=== PATIENT | female | born 1965 | race Caucasian/White ===

== ENCOUNTER 2019-12-07 14:56 | Emergency (ER) | payer OTHER ==
[~2019-12-07] VITALS: Ht 167.6 cm; Wt 86.2 kg
[2019-12-07] MEDS ORDERED: Trileptal150 MG PO (15:28)
[2019-12-07] MEDS ORDERED: QUET200 PO (15:28)
[2019-12-07] MEDS ORDERED: Loratadine10 MG PO (15:29)
[2019-12-07] MEDS ORDERED: LEVSOD50 PO (15:29)
[2019-12-07] MEDS ORDERED: Chantix1 MG (15:29)
[2019-12-07] MEDS ORDERED: ZOCOR20 MG PO (15:29)
[2019-12-07] MEDS ORDERED: Seroquel400 MG PO (15:29)
[2019-12-07] MEDS ORDERED: ESTRADIOL0.5 MG PO (15:30)
[2019-12-07] MEDS ORDERED: ALPR1 PO (15:32)
[2019-12-07 15:57] LABS: BASOPHILS ABSOLUTE AUTO 0.07 K/mm3 (0.00-0.23); BASOPHILS PERCENT AUTO 1 % (0-2); EOSINOPHILS ABSOLUTE AUTO 0.19 K/mm3 (0.00-0.68); EOSINOPHILS PERCENT AUTO 3 % (0-6); Hematocrit 40.4 % (33.0-51.0); Hemoglobin 13.8 g/dL (11.5-16.0); IMMATURE GRAN ABSOLUTE AUTO 0.01 K/mm3 (0.00-0.10); IMMATURE GRAN PERCENT AUTO 0 % (0-1); LYMPHOCYTES ABSOLUTE AUTO 1.89 K/mm3 (0.84-5.20); LYMPHOCYTES PERCENT AUTO 34 % (21-46); MONOCYTES ABSOLUTE AUTO 0.38 K/mm3 (0.16-1.47); MONOCYTES PERCENT AUTO 7 % (4-13); Mean Corpuscular HGB 30.8 pg (26.0-34.0); Mean Corpuscular HGB Conc 34.2 g/dL (31.5-36.5); Mean Corpuscular Volume 90 fL (80-100); NEUTROPHILS ABSOLUTE AUTO 3.06 K/mm3 (1.96-9.15); NEUTROPHILS PERCENT AUTO 55 % (41-73); Platelet Count 186 K/mm3 (150-400); RDW Coefficient Variation 13.1 % (11.7-14.2); RDW Standard Deviation 43.8 fL (35.1-46.3); Red Blood Cell Count 4.48 M/mm3 (3.80-5.20)
[2019-12-07 16:36] LABS: Alanine Aminotransfer (ALT/SGP 40 U/L (12-78); Albumin, Blood 3.9 g/dL (3.4-5.0); Albumin/Globulin Ratio 1.1 (0.8-1.8); Alk Phos 113 U/L (50-136); Anion Gap 6 mmol/L (6-16); Aspartate Aminotrans (AST/SGOT 35 U/L (12-37); Bilirubin, Total 0.4 mg/dL (0.1-1.0); Blood Urea Nitrogen 9 mg/dL (8-24); Bun/Creatinine Ratio 15.3 (12.0-20.0); CO2, Blood 25 mmol/L (21-32); Calcium, Blood 9.2 mg/dL (8.5-10.1); Chloride, Blood 102 mmol/L (98-108); Creatinine, Blood 0.59 mg/dL (0.40-1.00); Globulin, Blood 3.7 g/dL (2.2-4.0); Glomerular Filtration Rate >60 (60-); Glucose, Blood 104 mg/dL (70-99); Sodium, Blood 133 mmol/L (136-145); Total Protein, Blood 7.6 g/dL (6.4-8.2)
== END 2019-12-07 17:27 | disposition home or self-care (01) ==
LOC: ER 14:56
PROVIDERS: Emergency Medicine
DX: R60.0 Localized edema (principal); I50.9 Heart failure, unspecified; J44.9 Chronic obstructive pulmonary disease, unspecified; Z87.01 Personal history of pneumonia (recurrent); Z91.048 Other nonmedicinal substance allergy status; Z79.899 Other long term (current) drug therapy; F17.210 Nicotine dependence, cigarettes, uncomplicated
CPT/HCPCS: 71045; 80053; 85025; 93005; 93010; 93971; 99284-25

== ENCOUNTER 2020-05-31 08:30 | Emergency (ER) | payer OTHER ==
[~2020-05-31] VITALS: Ht 162.6 cm; Wt 97.5 kg
[~2020-05-31 08:30] MED LIST: ALPR1 PO; CHANTIX1 MG PO; CLOP75 PO; Cartia Xt120 MG PO; Chantix1 MG; ESTRADIOL0.5 MG PO; EUTHYROX125 MCG PO; GUAI600T33 PO; Gabapentin600 MG PO; HYDROCODONE-AC1 EAC5 PO; LEVSOD50 PO; Loratadine10 MG PO; MERIBIN5 M1 PO; PANT40 PO; Prednisone PO; QUET200 PO; Seroquel400 MG PO; Trileptal150 MG PO; Vitamin D2000 UNIT PO; ZOCOR20 MG PO; ZYRTEC10 M2 PO
[2020-05-31 09:15] LABS: BASOPHILS ABSOLUTE AUTO 0.07 K/mm3 (0.00-0.23); BASOPHILS PERCENT AUTO 1 % (0-2); EOSINOPHILS ABSOLUTE AUTO 0.11 K/mm3 (0.00-0.68); EOSINOPHILS PERCENT AUTO 1 % (0-6); Hematocrit 40.2 % (33.0-51.0); Hemoglobin 13.7 g/dL (11.5-16.0); IMMATURE GRAN PERCENT AUTO 1 % (0-1); LYMPHOCYTES PERCENT AUTO 38 % (21-46); MONOCYTES ABSOLUTE AUTO 0.67 K/mm3 (0.16-1.47); MONOCYTES PERCENT AUTO 6 % (4-13); Mean Corpuscular HGB 31.2 pg (26.0-34.0); Mean Corpuscular HGB Conc 34.1 g/dL (31.5-36.5); Mean Corpuscular Volume 92 fL (80-100); Mean Platelet Volume 9.9 fL (9.1-12.4); NEUTROPHILS ABSOLUTE AUTO 6.44 K/mm3 (1.96-9.15); NEUTROPHILS PERCENT AUTO 54 % (41-73); Platelet Count 208 K/mm3 (150-400); RDW Coefficient Variation 12.7 % (11.7-14.2); RDW Standard Deviation 42.5 fL (35.1-46.3); Red Blood Cell Count 4.39 M/mm3 (3.80-5.20); White Blood Cell Count 11.99 K/mm3 (4.00-11.30)
[2020-05-31 09:17] LABS: Base Excess Venous 6.1 mmol/L; Bicarbonate Venous 29.9 mmol/L (24.0-30.0); PCO2 Venous 34.8 mmHg (38-42)
[2020-05-31 09:18] LABS: pH Blood Venous 7.53 (7.34-7.37)
[2020-05-31 09:38] LABS: Alanine Aminotransfer (ALT/SGP 29 U/L (12-78); Albumin, Blood 3.5 g/dL (3.4-5.0); Albumin/Globulin Ratio 0.9 (0.8-1.8); Alk Phos 122 U/L (50-136); Anion Gap 6 mmol/L (6-16); Aspartate Aminotrans (AST/SGOT 10 U/L (12-37); Bilirubin, Total 0.3 mg/dL (0.1-1.0); Blood Urea Nitrogen 22 mg/dL (8-24); Bun/Creatinine Ratio 29.6 (12.0-20.0); CO2, Blood 28 mmol/L (21-32); Calcium, Blood 9.3 mg/dL (8.5-10.1); Chloride, Blood 101 mmol/L (98-108); Creatinine, Blood 0.74 mg/dL (0.40-1.00); Globulin, Blood 3.8 g/dL (2.2-4.0); Glomerular Filtration Rate >60 (60-); Glucose, Blood 119 mg/dL (70-99); Potassium, Blood 3.7 mmol/L (3.5-5.5); Sodium, Blood 135 mmol/L (136-145); Total Protein, Blood 7.3 g/dL (6.4-8.2); Troponin I <0.015 ng/mL (0.000-0.040)
[2020-05-31 09:47] LABS: International Normalized Ratio 0.95; Prothrombin Time Results 10.2 Sec (9.7-11.5)
[2020-05-31] MEDS ORDERED: Sucralfate1 GM PO (09:51)
[2020-05-31 10:09] LABS: Source, Urine Voided
[2020-05-31] MEDS ORDERED: ATOR80 PO (10:13)
[2020-05-31] MEDS ORDERED: POTA10T PO (10:14)
[2020-05-31] MEDS ORDERED: LASIX40 MG (10:14)
[2020-05-31] MEDS ORDERED: TORS10 (10:14)
[2020-05-31 10:21] LABS: Bilirubin, Urine Neg (Neg); Blood, Urine 1+ (Neg); Glucose Qualitative, Urine Neg (Neg); Ketones, Urine 1+ (Neg); Leukocyte Esterase, Urine 1+ (Neg); Nitrite, Urine Neg (Neg); Protein, Urine 2+ (Neg); Specific Gravity, Urine 1.015 (1.003-1.022); Urobilinogen, Urine 1+ (Normal)
[2020-05-31 10:40] LABS: Appearance, Urine Clear (Clear); Bacteria Rare /hpf; Color, Urine Amber (P-Yellow); Red Blood Cells, Urine 0-2 /hpf (0-2); Squamous Epithelial Cells Rare /hpf (Few)
[2020-05-31 10:41] LABS: Amorphous Light (0-Heavy); Mucus Light (0-Heavy)
== END 2020-05-31 10:29 | disposition home or self-care (01) ==
LOC: ER 08:30
PROVIDERS: Emergency Medicine
DX: R07.9 Chest pain, unspecified (principal); R06.4 Hyperventilation; J44.9 Chronic obstructive pulmonary disease, unspecified; E78.00 Pure hypercholesterolemia, unspecified; F17.210 Nicotine dependence, cigarettes, uncomplicated; Z91.09 Other allergy status, other than to drugs and biological substances; Z88.8 Allergy status to other drugs, medicaments and biological substances; Z79.02 Long term (current) use of antithrombotics/antiplatelets; Z79.899 Other long term (current) drug therapy
CPT/HCPCS: 36415; 71045; 80053; 81001; 82803; 83690; 83880; 84484; 85025; 85610; 93005; 93010; 96361; 96374; 96375; 99285-25; C9113; J2405; J7030

== ENCOUNTER 2021-01-02 10:09 | Day surgery (SDC) | payer OTHER ==
[~2021-01-02] VITALS: Ht 162.6 cm; Wt 103.9 kg
[~2021-01-02 10:09] MED LIST changes: +ATOR80 PO; +LASIX40 MG; +POTA10T PO; +Sucralfate1 GM PO; +TORS10
== END 2021-01-02 12:33 | disposition home or self-care (01) ==
LOC: ORSCSDS 10:09
PROVIDERS: Internal Medicine Gastroenterology
PROC: 0DBK8ZX Excision of Ascending Colon, Via Natural or Artificial Opening Endoscopic, Diagnostic (ICD-10-PCS; principal; 2021-01-02 11:30)
DX: Z12.11 Encounter for screening for malignant neoplasm of colon (principal); D12.2 Benign neoplasm of ascending colon; K57.30 Diverticulosis of large intestine without perforation or abscess without bleeding; K64.4 Residual hemorrhoidal skin tags; K64.8 Other hemorrhoids; J45.909 Unspecified asthma, uncomplicated; F41.9 Anxiety disorder, unspecified; F31.9 Bipolar disorder, unspecified; F43.10 Post-traumatic stress disorder, unspecified; E03.9 Hypothyroidism, unspecified; E11.9 Type 2 diabetes mellitus without complications; E66.01 Morbid (severe) obesity due to excess calories; Z68.39 Body mass index [BMI] 39.0-39.9, adult; Z79.84 Long term (current) use of oral hypoglycemic drugs; Z79.899 Other long term (current) drug therapy; F17.210 Nicotine dependence, cigarettes, uncomplicated
CPT/HCPCS: 82947; 88305; J2704; J7120

== ENCOUNTER 2021-03-29 09:46 | Day surgery (SDC) | payer OTHER ==
[~2021-03-29] VITALS: Ht 162.6 cm; Wt 100.8 kg
--- NOTE | 2021-03-29 11:40 | NUR ---
03/29/21 1140 Kenzie Van LATE ENTRY IV FELL OUT DURING PROCEDURE. NEW IV STARTED IN , 20G.
== END 2021-03-29 11:25 | disposition home or self-care (01) ==
LOC: ORSCSDS 09:46
PROVIDERS: Internal Medicine Gastroenterology
PROC: 0DBN8ZX Excision of Sigmoid Colon, Via Natural or Artificial Opening Endoscopic, Diagnostic (ICD-10-PCS; principal; 2021-03-29 11:00)
DX: K63.5 Polyp of colon (principal); K64.8 Other hemorrhoids; Z86.010 Personal history of colon polyps; J45.909 Unspecified asthma, uncomplicated; F31.9 Bipolar disorder, unspecified; F41.9 Anxiety disorder, unspecified; I25.10 Atherosclerotic heart disease of native coronary artery without angina pectoris; E11.9 Type 2 diabetes mellitus without complications; E66.01 Morbid (severe) obesity due to excess calories; Z68.38 Body mass index [BMI] 38.0-38.9, adult; Z79.01 Long term (current) use of anticoagulants; Z79.84 Long term (current) use of oral hypoglycemic drugs; Z79.899 Other long term (current) drug therapy; F17.210 Nicotine dependence, cigarettes, uncomplicated
CPT/HCPCS: 82947; 88305; J2704; J7120

== ENCOUNTER 2021-05-13 12:01 | Emergency (ER) | payer OTHER ==
[~2021-05-13] VITALS: Ht 162.6 cm; Wt 90.7 kg
[2021-05-13] MEDS ORDERED: PRED20 PO (13:45)
[2021-05-13] MEDS ORDERED: Zithromax250 MG PO (14:10)
[2021-05-13] MEDS ORDERED: AMOCLA875 PO (14:10)
== END 2021-05-13 14:33 | disposition home or self-care (01) ==
LOC: ER 12:01
DX: J45.901 Unspecified asthma with (acute) exacerbation (principal); J44.9 Chronic obstructive pulmonary disease, unspecified; Z88.8 Allergy status to other drugs, medicaments and biological substances; Z91.048 Other nonmedicinal substance allergy status; Z79.899 Other long term (current) drug therapy; Z99.81 Dependence on supplemental oxygen; Z87.891 Personal history of nicotine dependence
CPT/HCPCS: 71045; 93005; 93010; 94640; 96374; 99284-25; J2930

== ENCOUNTER 2021-07-18 11:28 | Observation (INO) | payer OTHER ==
[~2021-07-18] VITALS: Ht 162.6 cm; Wt 104.5 kg
[~2021-07-18 11:28] MED LIST changes: +AMOCLA875 PO; -Cartia Xt120 MG PO; +DILT120 PO; +PRED20 PO; -Seroquel400 MG PO; +Zithromax250 MG PO
[2021-07-18 12:06] LABS: BASOPHILS ABSOLUTE AUTO 0.05 K/mm3 (0.00-0.23); BASOPHILS PERCENT AUTO 1 % (0-2); EOSINOPHILS ABSOLUTE AUTO 0.18 K/mm3 (0.00-0.68); EOSINOPHILS PERCENT AUTO 3 % (0-6); Hematocrit 40.4 % (33.0-51.0); IMMATURE GRAN ABSOLUTE AUTO 0.02 K/mm3 (0.00-0.10); IMMATURE GRAN PERCENT AUTO 0 % (0-1); LYMPHOCYTES ABSOLUTE AUTO 2.46 K/mm3 (0.84-5.20); LYMPHOCYTES PERCENT AUTO 37 % (21-46); MONOCYTES ABSOLUTE AUTO 0.45 K/mm3 (0.16-1.47); MONOCYTES PERCENT AUTO 7 % (4-13); Mean Corpuscular HGB Conc 34.7 g/dL (31.5-36.5); Mean Corpuscular Volume 92 fL (80-100); Mean Platelet Volume 10.2 fL (9.1-12.4); NEUTROPHILS ABSOLUTE AUTO 3.56 K/mm3 (1.96-9.15); NEUTROPHILS PERCENT AUTO 53 % (41-73); Platelet Count 223 K/mm3 (150-400); RDW Coefficient Variation 12.7 % (11.7-14.2); RDW Standard Deviation 43.6 fL (35.1-46.3); Red Blood Cell Count 4.38 M/mm3 (3.80-5.20); White Blood Cell Count 6.72 K/mm3 (4.00-11.30)
[2021-07-18 12:28] LABS: Troponin I <0.015 ng/mL (0.000-0.040)
[2021-07-18 12:29] LABS: Alanine Aminotransfer (ALT/SGP 36 U/L (12-78); Albumin, Blood 4.2 g/dL (3.4-5.0); Albumin/Globulin Ratio 1.1 (0.8-1.8); Alk Phos 121 U/L (50-136); Anion Gap 9 mmol/L (6-16); Aspartate Aminotrans (AST/SGOT 23 U/L (12-37); Bilirubin, Total 0.3 mg/dL (0.1-1.0); Blood Urea Nitrogen 17 mg/dL (8-24); Bun/Creatinine Ratio 16.5 (12.0-20.0); CO2, Blood 27 mmol/L (21-32); Calcium, Blood 9.5 mg/dL (8.5-10.1); Chloride, Blood 96 mmol/L (98-108); Creatinine, Blood 1.03 mg/dL (0.40-1.00); Globulin, Blood 3.7 g/dL (2.2-4.0); Glomerular Filtration Rate 56 (60-); Glucose, Blood 150 mg/dL (70-99); Potassium, Blood 3.6 mmol/L (3.5-5.5); Sodium, Blood 132 mmol/L (136-145); Total Protein, Blood 7.9 g/dL (6.4-8.2)
--- NOTE | 2021-07-18 16:14 | NUR ---
Echocardiogram completed.
[2021-07-18] MEDS ORDERED: MONT10T PO (18:45)
[2021-07-18] MEDS ORDERED: BUSPIRONE HCL7.5 M1 PO (18:46)
[2021-07-18] MEDS ORDERED: MELO7.5 PO (18:46)
[2021-07-18] MEDS ORDERED: METF500 PO (18:47)
[2021-07-19 00:26] LABS: Hematocrit 35.1 % (33.0-51.0); Hemoglobin 12.6 g/dL (11.5-16.0); Mean Corpuscular HGB 32.5 pg (26.0-34.0); Mean Corpuscular HGB Conc 35.9 g/dL (31.5-36.5); Mean Corpuscular Volume 91 fL (80-100); Mean Platelet Volume 9.6 fL (9.1-12.4); Platelet Count 192 K/mm3 (150-400); RDW Coefficient Variation 12.7 % (11.7-14.2); RDW Standard Deviation 42.3 fL (35.1-46.3); Red Blood Cell Count 3.88 M/mm3 (3.80-5.20); White Blood Cell Count 5.48 K/mm3 (4.00-11.30)
[2021-07-19 00:42] LABS: Anion Gap 7 mmol/L (6-16); Blood Urea Nitrogen 18 mg/dL (8-24); CO2, Blood 28 mmol/L (21-32); Calcium, Blood 8.9 mg/dL (8.5-10.1); Chloride, Blood 99 mmol/L (98-108); Glomerular Filtration Rate >60 (60-); Glucose, Blood 130 mg/dL (70-99); Potassium, Blood 3.8 mmol/L (3.5-5.5); Sodium, Blood 134 mmol/L (136-145)
--- NOTE | 2021-07-19 04:29 | NUR ---
SHIFT SUMMARY PATIENT HAD NO ACUTE CHANGES OBSERVED. AXOX 4 AND INDEPENDENT IN ROOM. DENIES CHEST PAIN, SOB, AND N/V. TROPONINS WNL. PIV REMAINS INTACT. NS INFUSING AT 75mL/HR. CBG 123. ON ROOM AIR DAY AND USES 3L O2 NC NOC. VSS/AFEBRILE. CALL LIGHT IN REACH. BED IN LOWEST POSITION. WILL CONTINUE TO MONITOR UNTIL DAY SHIFT NURSE ASSUMES CARE.
[2021-07-19] MEDS ORDERED: Isosorbide Mono30 MG PO (12:07)
[2021-07-19] MEDS ORDERED: RANO500T PO (12:08)
--- NOTE | 2021-07-19 15:25 | NUR ---
DISCHARGE PT DISCHARGED HOME, IV AND TELE REMOVED PRIOR TO DISCHARGE. TRANSFERED VIA WHEELCHAIR WITH PERSONAL BELONGINGS TO [facility] WHERE SHE WAS PICKED UP BY HER SISTER. PT DISCHARGE EDUCATION GIVEN TO PT AND REVIEWED WITH PT PRIOR TO DISCHARGE, ON NEW MEDICATIONS AND ADMITTING DIAGONSIS. APPOINTMENTS MADE WITHIN REQUESTED TIME FRAME FOR FOLLOW UP WITH PCP AND CARDIAC.
== END 2021-07-19 12:52 | disposition home or self-care (01) ==
LOC: ER 11:28 → ERHOLD 11:29 → MEDS 18:22
PROVIDERS: Nurse Practitioner Acute Care; Physician Assistant; ADMIT Hospitalist
DX: R07.89 Other chest pain (principal); J44.9 Chronic obstructive pulmonary disease, unspecified; I10 Essential (primary) hypertension; E11.9 Type 2 diabetes mellitus without complications; E78.00 Pure hypercholesterolemia, unspecified; E03.9 Hypothyroidism, unspecified; K21.9 Gastro-esophageal reflux disease without esophagitis; F31.9 Bipolar disorder, unspecified; I27.20 Pulmonary hypertension, unspecified; Z88.8 Allergy status to other drugs, medicaments and biological substances; Z91.048 Other nonmedicinal substance allergy status; Z87.891 Personal history of nicotine dependence; Z99.81 Dependence on supplemental oxygen
CPT/HCPCS: 36415; 71046; 80048; 80053; 82947; 83036; 84484; 85025; 85027; 93005; 93010; 93306; 94640; 94760; 99285-25; A9270; J1650; J7030

== ENCOUNTER → 2022-11-27 | Outpatient (CLI) | payer OTHER ==
[~2022-11-27] MED LIST changes: +BUSPIRONE HCL7.5 M1 PO; +Isosorbide Mono30 MG PO; +MELO7.5 PO; +METF500 PO; +MONT10T PO; +RANO500T PO
[2022-11-27 16:57] LABS: Source, Urine Clean Catch
[2022-11-27 17:41] LABS: Appearance, Urine Clear (Clear); Bilirubin, Urine Neg (Neg); Blood, Urine Neg (Neg); Color, Urine Yellow (P-Yellow); Glucose Qualitative, Urine Neg (Neg); Ketones, Urine Neg (Neg); Leukocyte Esterase, Urine Neg (Neg); Nitrite, Urine Neg (Neg); Protein, Urine Neg (Neg); Specific Gravity, Urine 1.005 (1.003-1.022); Urobilinogen, Urine NORM (Normal)
== END | disposition home or self-care (01) ==
LOC: LAB SHORT 12:45 → LAB 12:45
PROVIDERS: Nurse Practitioner Family
DX: R39.89 Other symptoms and signs involving the genitourinary system (principal)
CPT/HCPCS: 81003

== ENCOUNTER 2023-02-08 11:51 | Emergency (ER) | payer MEDICARE, OTHER ==
[~2023-02-08] VITALS: Ht 165.1 cm; Wt 90.7 kg
[2023-02-08 12:53] LABS: BASOPHILS ABSOLUTE AUTO 0.05 K/mm3 (0.00-0.23); BASOPHILS PERCENT AUTO 1 % (0-2); EOSINOPHILS PERCENT AUTO 2 % (0-6); Hematocrit 33.7 % (33.0-51.0); Hemoglobin 11.8 g/dL (11.5-16.0); IMMATURE GRAN ABSOLUTE AUTO 0.02 K/mm3 (0.00-0.10); IMMATURE GRAN PERCENT AUTO 0 % (0-1); LYMPHOCYTES ABSOLUTE AUTO 1.88 K/mm3 (0.84-5.20); LYMPHOCYTES PERCENT AUTO 31 % (21-46); MONOCYTES ABSOLUTE AUTO 0.42 K/mm3 (0.16-1.47); MONOCYTES PERCENT AUTO 7 % (4-13); Mean Corpuscular HGB 31.8 pg (26.0-34.0); Mean Corpuscular Volume 91 fL (80-100); NEUTROPHILS ABSOLUTE AUTO 3.53 K/mm3 (1.96-9.15); NEUTROPHILS PERCENT AUTO 59 % (41-73); RDW Coefficient Variation 13.6 % (11.7-14.2); RDW Standard Deviation 45.2 fL (35.1-46.3); Red Blood Cell Count 3.71 M/mm3 (3.80-5.20)
[2023-02-08 13:02] LABS: Mean Platelet Volume 10.5 fL (9.1-12.4)
[2023-02-08 13:06] LABS: Albumin, Blood 3.9 g/dL (3.4-5.0); Albumin/Globulin Ratio 1.1 (0.8-1.8); Bilirubin, Total 0.3 mg/dL (0.1-1.0); Bun/Creatinine Ratio 13.5 (12.0-20.0); Calcium, Blood 8.7 mg/dL (8.5-10.1); Creatinine, Blood 1.85 mg/dL (0.40-1.00); Globulin, Blood 3.4 g/dL (2.2-4.0); Potassium, Blood 4.4 mmol/L (3.5-5.5); Total Protein, Blood 7.3 g/dL (6.4-8.2)
[2023-02-08 14:08] LABS: Platelet Count 173 K/mm3 (150-400)
[2023-02-08] MEDS ORDERED: MECL25 PO (14:23)
[2023-02-08 14:45] VITALS: BP 138/78
== END 2023-02-08 14:48 | disposition home or self-care (01) ==
LOC: ER 11:51
PROVIDERS: Emergency Medicine
DX: N28.9 Disorder of kidney and ureter, unspecified (principal); I95.9 Hypotension, unspecified; E86.0 Dehydration; J44.9 Chronic obstructive pulmonary disease, unspecified; Z88.4 Allergy status to anesthetic agent; Z91.048 Other nonmedicinal substance allergy status; Z79.899 Other long term (current) drug therapy; Z87.891 Personal history of nicotine dependence
CPT/HCPCS: 80053; 84484; 85025; 93005; 93010; 99284-25; A9270; J7030

== ENCOUNTER 2023-09-30 20:00 | Observation (INO) | payer MEDICARE, OTHER ==
[~2023-09-30] VITALS: Ht 162.6 cm; Wt 99.0 kg
[~2023-09-30 20:00] MED LIST changes: +MECL25 PO
[2023-09-30 21:01] LABS: BASOPHILS ABSOLUTE AUTO 0.07 K/mm3 (0.00-0.23); BASOPHILS PERCENT AUTO 1 % (0-2); EOSINOPHILS ABSOLUTE AUTO 0.16 K/mm3 (0.00-0.68); EOSINOPHILS PERCENT AUTO 2 % (0-6); Hematocrit 39.1 % (33.0-51.0); Hemoglobin 13.7 g/dL (11.5-16.0); IMMATURE GRAN ABSOLUTE AUTO 0.02 K/mm3 (0.00-0.10); IMMATURE GRAN PERCENT AUTO 0 % (0-1); LYMPHOCYTES ABSOLUTE AUTO 2.42 K/mm3 (0.84-5.20); LYMPHOCYTES PERCENT AUTO 29 % (21-46); MONOCYTES ABSOLUTE AUTO 0.54 K/mm3 (0.16-1.47); MONOCYTES PERCENT AUTO 6 % (4-13); Mean Corpuscular HGB 32.1 pg (26.0-34.0); Mean Corpuscular Volume 92 fL (80-100); NEUTROPHILS ABSOLUTE AUTO 5.23 K/mm3 (1.96-9.15); NEUTROPHILS PERCENT AUTO 62 % (41-73); Platelet Count 220 K/mm3 (150-400); RDW Coefficient Variation 13.1 % (11.7-14.2); RDW Standard Deviation 43.6 fL (35.1-46.3); Red Blood Cell Count 4.27 M/mm3 (3.80-5.20); White Blood Cell Count 8.44 K/mm3 (4.00-11.30)
[2023-09-30 21:18] LABS: Albumin, Blood 4.1 g/dL (3.4-5.0); Albumin/Globulin Ratio 1.1 (0.8-1.8); Bilirubin, Total 0.4 mg/dL (0.1-1.0); Calcium, Blood 9.8 mg/dL (8.5-10.1); Creatinine, Blood 0.77 mg/dL (0.40-1.00); Globulin, Blood 3.7 g/dL (2.2-4.0); Potassium, Blood 3.6 mmol/L (3.5-5.5); Total Protein, Blood 7.8 g/dL (6.4-8.2)
[2023-09-30 23:06] LABS: D-Dimer, Quantitative 0.28 mg/L FEU (0.00-0.52); International Normalized Ratio 0.98; Prothrombin Time Results 10.3 Sec (9.7-11.5)
[2023-10-01] MEDS ORDERED: FentaNYL Citrate 50 MCG/ML 2 ML Injection IV PRN (03:05)
[2023-10-01] MEDS ORDERED: NS 1,000 ML IV ONE ×2 (03:05→03:15)
[2023-10-01] MEDS ORDERED: FLU VACC QS2023-24(6MOS UP)/PF 60 MCG/0.5 ML SYRINGE IM ONE ×2 (03:05)
[2023-10-01] MEDS ORDERED: Ondansetron HCl 2 MG / ML 2ML Vial IV PRN (03:05)
[2023-10-01] MEDS ORDERED: Mag Hydrox/Al Hydrox/Simeth 72 ML,Lidocaine 2% Viscous Soln 36 ML,Atropine/Scopalam/Hyo... PO PRN (04:25)
[2023-10-01] MEDS ORDERED: Albuterol 2.5 MG/3 ML VIAL INH PRN (07:35)
[2023-10-01] MEDS ORDERED: TIOTROPIUM BROMIDE INH SCH (07:45)
[2023-10-01] MEDS ORDERED: Misc. Inpatient Respiratory Med INH SCH (07:45)
[2023-10-01 07:52] VITALS: BP 123/69
--- NOTE | 2023-10-01 08:02 | NUR ---
Patient arrivede from the ED and oriented and admitted to room 308. Pt is alert and oriented Patient is on 3 L of O2. Pt has inspiratory and expiratory wheezes. No c/o chest pain or pressure. Pt is alert and oriented. IV fluids x1 bag. Pt is working on med list. Takes over 20 medications. Call light in reach. Fall precautions discussed. Report given to on coming .shift
[2023-10-01] MEDS ORDERED: FORMOTEROL INH SCH (08:05)
[2023-10-01] MEDS ORDERED: BUDESONIDE INH SCH (08:05)
[2023-10-01 08:34] LABS: BASOPHILS ABSOLUTE AUTO 0.04 K/mm3 (0.00-0.23); BASOPHILS PERCENT AUTO 1 % (0-2); EOSINOPHILS ABSOLUTE AUTO 0.11 K/mm3 (0.00-0.68); EOSINOPHILS PERCENT AUTO 2 % (0-6); Hematocrit 39.1 % (33.0-51.0); Hemoglobin 13.3 g/dL (11.5-16.0); IMMATURE GRAN ABSOLUTE AUTO 0.02 K/mm3 (0.00-0.10); IMMATURE GRAN PERCENT AUTO 0 % (0-1); LYMPHOCYTES ABSOLUTE AUTO 2.05 K/mm3 (0.84-5.20); LYMPHOCYTES PERCENT AUTO 34 % (21-46); MONOCYTES PERCENT AUTO 7 % (4-13); Mean Corpuscular HGB 31.7 pg (26.0-34.0); Mean Corpuscular Volume 93 fL (80-100); Mean Platelet Volume 9.8 fL (9.1-12.4); NEUTROPHILS ABSOLUTE AUTO 3.36 K/mm3 (1.96-9.15); NEUTROPHILS PERCENT AUTO 56 % (41-73); Platelet Count 190 K/mm3 (150-400); RDW Coefficient Variation 13.1 % (11.7-14.2); RDW Standard Deviation 44.5 fL (35.1-46.3); White Blood Cell Count 5.98 K/mm3 (4.00-11.30)
[2023-10-01] MEDS ORDERED: OXCA150 PO (08:55)
[2023-10-01 08:58] LABS: Albumin/Globulin Ratio 1.2 (0.8-1.8); Bilirubin, Total 0.4 mg/dL (0.1-1.0); Bun/Creatinine Ratio 15.4 (12.0-20.0); Calcium, Blood 9.4 mg/dL (8.5-10.1); Creatinine, Blood 0.78 mg/dL (0.40-1.00); Globulin, Blood 3.3 g/dL (2.2-4.0); Potassium, Blood 3.5 mmol/L (3.5-5.5); Total Protein, Blood 7.3 g/dL (6.4-8.2)
[2023-10-01] MEDS ORDERED: Gabapentin 300 MG Cap PO SCH ×2 (09:00→21:00)
[2023-10-01] MEDS ORDERED: QUEtiapine Fumarate 200 MG Tab PO SCH ×2 (09:00→21:00)
[2023-10-01] MEDS ORDERED: BusPIRone HCl 5 MG Tab PO SCH (09:00)
[2023-10-01] MEDS ORDERED: OXcarbazepine 150 MG Tab PO SCH (09:00)
[2023-10-01] MEDS ORDERED: dilTIAZem HCL 120 MG CAP.CD PO SCH (09:00)
[2023-10-01] MEDS ORDERED: Enoxaparin 40 MG/0.4 ML SYR SC SCH (09:00)
[2023-10-01] MEDS ORDERED: SPIRIVA INH (10:18)
[2023-10-01] MEDS ORDERED: SYMBICORT INH (10:18)
[2023-10-01] MEDS ORDERED: TIOT18 INH (11:47)
[2023-10-01] MEDS ORDERED: DILT120 PO (11:48)
[2023-10-01] MEDS ORDERED: SYMBICORT 80-10.2 GM INH (11:48)
--- NOTE | 2023-10-01 12:25 | NUR ---
SHIFT/DISCHARGE SUMMARY Pt remains A&)x4 this shift. Vaping equip and lighters locked inmed drawer per MANSI RN report with pt. Importance of no vaping or smoking in hospital due to explosiveness. Hospital policy reviewed with pt at shift change with pt, MANSI RN and self. Pt ambulates independently to bathroom. Resp even nonlabored on RA. NPO for possible stress test today. Master Planner walked into pt room around 11am, pt on cell phone vaping while in bed. Pt handed card writer hand vaper. bench jeweler, farm equipment maintenance supervisor and mgr Sulma made aware. Instructed by Sulma to inform Dr. Brooks of event. Discharge orders then written and provided to pt. Pt declined wc transfer to [facility]. Locked lighters and vaping equip returned to pt.
[2023-10-02] MEDS ORDERED: Pantoprazole Sodium 40 MG Tab PO SCH (06:00)
== END 2023-10-01 12:17 | disposition home or self-care (01) ==
LOC: ER 20:00 → MEDS 20:01 → ER 10-01 03:48 → MEDS 10-01 03:55 → ENPENDDIS 10-01 11:23 → MEDS 10-01 12:17
PROVIDERS: Emergency Medicine; ADMIT Internal Medicine
DX: R07.89 Other chest pain (principal); J44.9 Chronic obstructive pulmonary disease, unspecified; E85.4 Organ-limited amyloidosis; J99 Respiratory disorders in diseases classified elsewhere; J45.909 Unspecified asthma, uncomplicated; E11.40 Type 2 diabetes mellitus with diabetic neuropathy, unspecified; E03.9 Hypothyroidism, unspecified; E78.5 Hyperlipidemia, unspecified; Z79.84 Long term (current) use of oral hypoglycemic drugs; Z79.899 Other long term (current) drug therapy; Z87.891 Personal history of nicotine dependence; Z88.8 Allergy status to other drugs, medicaments and biological substances; Z99.81 Dependence on supplemental oxygen
CPT/HCPCS: 36415; 71045; 71260; 80053; 83690; 84484; 85025; 85379; 85610; 85730; 93005; 93010; 94640; 94664; 94760; 96372; 99285-25; A9270; G0378; J1650; J7030; Q9967

== ENCOUNTER 2023-12-19 18:03 | Emergency (ER) | payer MEDICARE, OTHER ==
[~2023-12-19] VITALS: Ht 162.6 cm; Wt 95.2 kg
[~2023-12-19 18:03] MED LIST changes: +OXCA150 PO; +SPIRIVA INH; +SYMBICORT 80-10.2 GM INH; +SYMBICORT INH; +TIOT18 INH
[2023-12-19 18:12] VITALS: BP 178/90
[2023-12-19] MEDS ORDERED: Acetaminophen 500 MG Tab PO ONE (20:00)
== END 2023-12-19 20:08 | disposition home or self-care (01) ==
LOC: ER 18:03
DX: S83.91XA Sprain of unspecified site of right knee, initial encounter (principal); W18.30XA Fall on same level, unspecified, initial encounter; Z88.8 Allergy status to other drugs, medicaments and biological substances; Z79.899 Other long term (current) drug therapy; J44.89 Other specified chronic obstructive pulmonary disease; J45.909 Unspecified asthma, uncomplicated; Z87.891 Personal history of nicotine dependence
CPT/HCPCS: 73564; 99283-25; A9270

== ENCOUNTER → 2024-04-19 | Outpatient (CLI) | payer MEDICARE, OTHER ==
[2024-04-19 10:49] LABS: BASOPHILS ABSOLUTE AUTO 0.04 K/mm3 (0.00-0.23); BASOPHILS PERCENT AUTO 1 % (0-2); EOSINOPHILS ABSOLUTE AUTO 0.12 K/mm3 (0.00-0.68); EOSINOPHILS PERCENT AUTO 3 % (0-6); Hematocrit 35.4 % (33.0-51.0); Hemoglobin 11.7 g/dL (11.5-16.0); IMMATURE GRAN ABSOLUTE AUTO 0.01 K/mm3 (0.00-0.10); IMMATURE GRAN PERCENT AUTO 0 % (0-1); LYMPHOCYTES ABSOLUTE AUTO 2.35 K/mm3 (0.84-5.20); LYMPHOCYTES PERCENT AUTO 51 % (21-46); MONOCYTES ABSOLUTE AUTO 0.24 K/mm3 (0.16-1.47); MONOCYTES PERCENT AUTO 5 % (4-13); Mean Corpuscular HGB 30.9 pg (26.0-34.0); Mean Corpuscular HGB Conc 33.1 g/dL (31.5-36.5); Mean Corpuscular Volume 93 fL (80-100); NEUTROPHILS ABSOLUTE AUTO 1.81 K/mm3 (1.96-9.15); NEUTROPHILS PERCENT AUTO 40 % (41-73); Platelet Count 212 K/mm3 (150-400); RDW Coefficient Variation 13.9 % (11.7-14.2); RDW Standard Deviation 47.1 fL (35.1-46.3); Red Blood Cell Count 3.79 M/mm3 (3.80-5.20); White Blood Cell Count 4.57 K/mm3 (4.00-11.30)
[2024-04-19 10:55] LABS: Bun/Creatinine Ratio 14.9 (12.0-20.0); Calcium, Blood 8.8 mg/dL (8.5-10.1); Creatinine, Blood 0.87 mg/dL (0.40-1.00); Potassium, Blood 4.3 mmol/L (3.5-5.5)
== END | disposition home or self-care (01) ==
LOC: LAB 10:45 → LAB SHORT 10:45
PROVIDERS: Physician Assistant Surgical
DX: M79.602 Pain in left arm (principal)
CPT/HCPCS: 80048; 84484; 85025

== ENCOUNTER 2025-07-28 08:46 | Emergency (ER) | payer MEDICARE ==
[~2025-07-28] VITALS: Ht 162.6 cm; Wt 89.8 kg
[2025-07-28] MEDS ORDERED: NS 1,000 ML IV SCH (09:10)
[2025-07-28 09:14] LABS: BASOPHILS ABSOLUTE AUTO 0.04 K/mm3 (0.00-0.23); BASOPHILS PERCENT AUTO 1 % (0-2); EOSINOPHILS ABSOLUTE AUTO 0.10 K/mm3 (0.00-0.68); EOSINOPHILS PERCENT AUTO 2 % (0-6); Hematocrit 37.6 % (33.0-51.0); Hemoglobin 12.7 g/dL (11.5-16.0); IMMATURE GRAN ABSOLUTE AUTO 0.01 K/mm3 (0.00-0.10); IMMATURE GRAN PERCENT AUTO 0 % (0-1); LYMPHOCYTES ABSOLUTE AUTO 1.79 K/mm3 (0.84-5.20); LYMPHOCYTES PERCENT AUTO 36 % (21-46); MONOCYTES ABSOLUTE AUTO 0.31 K/mm3 (0.16-1.47); MONOCYTES PERCENT AUTO 6 % (4-13); Mean Corpuscular HGB Conc 33.8 g/dL (31.5-36.5); Mean Corpuscular Volume 92 fL (80-100); NEUTROPHILS ABSOLUTE AUTO 2.75 K/mm3 (1.96-9.15); NEUTROPHILS PERCENT AUTO 55 % (41-73); NRBC ABSOLUTE 0.00 K/mm3 (0.00-0.02); NRBC Auto 0.0 /100 WBC (0.0-0.2); Platelet Count 196 K/mm3 (150-400); RDW Coefficient Variation 13.3 % (11.7-14.2); RDW Standard Deviation 44.9 fL (35.1-46.3)
[2025-07-28 09:16] VITALS: BP 99/68
[2025-07-28 09:33] LABS: Alanine Aminotransfer (ALT/SGP 20.0 U/L (12-78); Albumin, Blood 3.4 g/dL (3.4-5.0); Albumin/Globulin Ratio 1.1 (0.8-1.8); Anion Gap 7.0 mmol/L (3-11); Aspartate Aminotrans (AST/SGOT 11.0 U/L (12-37); Bilirubin, Total 0.3 mg/dL (0.1-1.0); Blood Urea Nitrogen 21.0 mg/dL (8-24); CO2, Blood 27.0 mmol/L (21-32); Calcium, Blood 9.1 mg/dL (8.5-10.1); Chloride, Blood 107.0 mmol/L (98-108); Creatinine, Blood 1.08 mg/dL (0.40-1.00); Globulin, Blood 3.2 g/dL (2.2-4.0); Glucose, Blood 102.0 mg/dL (70-99); Potassium, Blood 3.4 mmol/L (3.5-5.5); Sodium, Blood 138.0 mmol/L (136-145); Total Protein, Blood 6.6 g/dL (6.4-8.2)
== END 2025-07-28 10:53 | disposition home or self-care (01) ==
LOC: ER 08:46
PROVIDERS: Emergency Medicine
DX: E86.0 Dehydration (principal); I95.9 Hypotension, unspecified; R42 Dizziness and giddiness; I10 Essential (primary) hypertension; E03.9 Hypothyroidism, unspecified; J44.89 Other specified chronic obstructive pulmonary disease; E11.40 Type 2 diabetes mellitus with diabetic neuropathy, unspecified; Z88.8 Allergy status to other drugs, medicaments and biological substances; Z79.84 Long term (current) use of oral hypoglycemic drugs; Z87.891 Personal history of nicotine dependence
CPT/HCPCS: 80053; 83880; 84484; 85025; 93005; 93010; 96360; 99284-25; J7030